=== PATIENT | female | born 1985 | race Two or more races ===

== ENCOUNTER 2024-10-31 10:46 | Inpatient (IN) | payer OTHER ==
[~2024-10-31] VITALS: Ht 172.7 cm; Wt 137.4 kg
[2024-10-31] MEDS ORDERED: ALBUTEROL0.63 MG/3 IH (11:03)
[2024-10-31] MEDS ORDERED: FLONASE ALLERG9.9 ML NS (11:03)
[2024-10-31] MEDS ORDERED: METHYLPREDNISOLONE SOD SUCC 125 MG VIAL ONE ×2 (11:26→19:05)
[2024-10-31] MEDS ORDERED: CEFTRIAXONE SODIUM 1,000 MG VIAL ONE (11:27)
[2024-10-31] MEDS ORDERED: FAMOTIDINE/PF 20 MG/2 ML VIAL ONE (11:27)
[2024-10-31] MEDS ORDERED: MAGNESIUM SULFATE IN WATER 2 GM/50 ML PIGGYBAG IV ONE (11:30)
[2024-10-31] MEDS ORDERED: IPRATROPIUM BROMIDE 0.5 MG/2.5 ML AMPUL.NEB IH SCH ×2 (11:30→17:58)
[2024-10-31] MEDS ORDERED: FAMOtidine 10 MG/ML (4ML VIAL) IV ONE (11:30)
[2024-10-31] MEDS ORDERED: CEFTRIAXONE SODIUM 1,000 MG VIAL IV ONE (11:30)
[2024-10-31] MEDS ORDERED: PIPERACILLIN/TAZOBACTAM SODIUM 3.375 GM VIAL IV ONE ×2 (11:30→11:33)
[2024-10-31] MEDS ORDERED: LEVALBUTEROL HCL 1.25 MG/3 ML SOLUTION IH SCH (11:30)
[2024-10-31] MEDS ORDERED: METHYLPREDNISOLONE SOD SUCC 125 MG VIAL IM ONE (11:30)
[2024-10-31] MEDS ORDERED: BENZONATATE 100 MG CAPSULE PO ONE (11:30)
[2024-10-31] MEDS ORDERED: MAGNESIUM SULFATE 50% 1,000 MG/2 ML VIAL ONE (11:36)
[2024-10-31] MEDS ORDERED: LEVALBUTEROL HCL 1.25 MG/3 ML SOLUTION IH ONE ×2 (11:39→18:46)
[2024-10-31] MEDS ORDERED: IPRATROPIUM BROMIDE 0.5 MG/2.5 ML AMPUL.NEB IH ONE ×2 (11:39→18:46)
[2024-10-31 12:08] LABS: ABG PO2 65.3 mmHg (80-100); ABG pCO2 44.5 mmHg (35-45); BASE EXCESS -0.3 mmol/l; BICARBONATE 25.2 mmol/l (23-25); SaO2 91.8 %; Tco2 26.6 mmol/l
[2024-10-31 12:09] LABS: allen test SATISFACTORY; o2 21 %; puncture site RADIAL RIGHT
[2024-10-31 12:18] LABS: HEMATOCRIT 39.1 % (36.0-45.00); HEMOGLOBIN 13.4 g/dL (12.0-15.00); MEAN CELL VOLUME 90.8 fL (80.00-100.00); MEAN CORPUSCULAR HEMOGLOBIN 31.2 pg (27.00-32.0); MEAN CORPUSCULAR HGB CONC 34.4 g/dl (32.0-36.0); PLATELET COUNT 239 K/uL (150-450); RED CELL DISTRIBUTION WIDTH 15.3 % (11.5-14.5)
[2024-10-31 13:08] LABS: ALBUMIN 3.9 gm/dL (3.4-5.0); BILIRUBIN TOTAL 0.69 mg/dL (0.3-1.2); CALCIUM 9.1 mg/dL (8.5-10.1); CREATININE SERUM 0.84 mg/dL (0.55-1.02); GFR 75.09; POTASSIUM 3.96 mEq/L (3.5-5.1); TOTAL PROTEIN 7.9 gm/dL (6.4-8.2)
[2024-10-31 13:16] LABS: INR 1.05; PROTHROMBIN TIME 11.4 SECONDS (9.0-11.5)
[2024-10-31 13:21] LABS: D DIMER 0.38 MG/L; PARTIAL THROMBOPLASTIN TIME 27.1 SECONDS (22.0-34.0)
[2024-10-31] MEDS ORDERED: ALBUTEROL SULFATE 3 ML/2.5 MG AMPUL.NEB IH SCH (17:57)
[2024-10-31] MEDS ORDERED: METHYLPREDNISOLONE SOD SUCC 125 MG VIAL IV SCH (18:00)
[2024-10-31] MEDS ORDERED: ACETAMINOPHEN 325 MG TABLET PO PRN (18:00)
[2024-10-31] MEDS ORDERED: ALBUTEROL SULFATE 3 ML/2.5 MG AMPUL.NEB IH ONE (19:05)
[2024-11-01 03:09] VITALS: BP 141/96; O2SAT 99
[2024-11-01 07:51] LABS: HEMATOCRIT 39.6 % (36.0-45.00); HEMOGLOBIN 13.6 g/dL (12.0-15.00); MEAN CELL VOLUME 92.1 fL (80.00-100.00); MEAN CORPUSCULAR HEMOGLOBIN 31.5 pg (27.00-32.0); MEAN CORPUSCULAR HGB CONC 34.3 g/dl (32.0-36.0); PLATELET COUNT 233 K/uL (150-450); RED CELL DISTRIBUTION WIDTH 15.3 % (11.5-14.5)
[2024-11-01 08:27] LABS: CALCIUM 8.9 mg/dL (8.5-10.1); CREATININE SERUM 0.86 mg/dL (0.55-1.02); GFR 73.08; POTASSIUM 4.06 mEq/L (3.5-5.1); TSH 0.756 uIU/mL (0.358-3.74)
[2024-11-01 08:31] LABS: C-REACTIVE PROTEIN 0.72 MG/DL (0.00-0.29)
[2024-11-01] MEDS ORDERED: FAMOTIDINE/PF 20 MG/2 ML VIAL IV SCH (09:00)
[2024-11-01] MEDS ORDERED: 0.9 % SODIUM CHLORIDE 1,000 ML IV SCH (09:00)
[2024-11-01] MEDS ORDERED: MONTELUKAST SODIUM 10 MG TABLET PO SCH (09:00)
[2024-11-01 09:28] LABS: ERYTHROCYTE SEDIMENTATION RATE 39 mm/hr
[2024-11-01 09:54] VITALS: BP 124/90; O2SAT 97
[2024-11-01 10:22] LABS: ABG PH 7.394 (7.35-7.45); ABG pCO2 33.9 mmHg (35-45)
[2024-11-01 10:23] LABS: BASE EXCESS -3.7 mmol/l; BICARBONATE 20.3 mmol/l (23-25); Tco2 21.3 mmol/l
[2024-11-01 10:24] LABS: ABG PO2 57.5 mmHg (80-100); allen test SATISFACTORY; o2 21 %; puncture site RADIAL LEFT
[2024-11-01] MEDS ORDERED: ACETAMINOPHEN 500 MG GEL..CAP PO PRN (11:45)
[2024-11-01 17:37] VITALS: BP 116/71; O2SAT 97
[2024-11-01] MEDS ORDERED: ENOXAPARIN SODIUM 80 MG/0.8 ML SYRINGE SUBCUTANEO SCH (21:00)
[2024-11-01] MEDS ORDERED: ENOXAPARIN SODIUM SUBCUTANEO SCH (21:00)
[2024-11-02 01:21] VITALS: BP 132/66
[2024-11-02 09:13] VITALS: BP 139/70; O2SAT 95
[2024-11-02] MEDS ORDERED: METHYLPREDNISOLONE SOD SUCC 40 MG VIAL IV SCH (12:00)
[2024-11-02 16:46] VITALS: BP 135/84; O2SAT 98
[2024-11-03 00:49] VITALS: BP 115/65; O2SAT 99
[2024-11-03 08:58] VITALS: BP 125/75; O2SAT 96
[2024-11-03] MEDS ORDERED: BUDESONIDE 0.5 MG/2 ML AMPUL.NEB IH SCH (17:00)
[2024-11-03 17:25] VITALS: BP 154/78; O2SAT 97
[2024-11-04 01:07] VITALS: BP 118/62; O2SAT 97
[2024-11-04 08:54] VITALS: BP 122/65; O2SAT 99
[2024-11-04] MEDS ORDERED: ENOXAPARIN SODIUM 40 MG/0.4 ML SYRINGE SUBCUTANEO SCH (09:00)
[2024-11-04] MEDS ORDERED: IPRATROPIUM/ALBUTEROL SULFATE 3 ML AMPUL.NEB IH ONE (13:14)
[2024-11-04 16:58] VITALS: BP 147/86; O2SAT 95
[2024-11-04] MEDS ORDERED: METHYLPREDNISOLONE SOD SUCC 40 MG VIAL IV SCH ×2 (17:00)
[2024-11-04] MEDS ORDERED: IPRATROPIUM/ALBUTEROL SULFATE 3 ML AMPUL.NEB IH SCH (17:00)
[2024-11-05 01:28] VITALS: BP 128/69; O2SAT 97
[2024-11-05 09:20] VITALS: BP 104/59; O2SAT 95
[2024-11-05 15:30] VITALS: BP 140/80
== END 2024-11-05 19:17 | disposition home or self-care (01) | DRG 202 ==
LOC: ER 10:49 → MEDI 18:43
PROVIDERS: General Practice; ADMIT Internal Medicine; ATTEND Internal Medicine
PROC: 3E0F7GC Introduction of Other Therapeutic Substance into Respiratory Tract, Via Natural or Artificial Opening (ICD-10-PCS; principal; 2024-10-31)
PROC: B32TYZZ Computerized Tomography (CT Scan) of Left Pulmonary Artery using Other Contrast (ICD-10-PCS; 2024-11-01)
PROC: B32SYZZ Computerized Tomography (CT Scan) of Right Pulmonary Artery using Other Contrast (ICD-10-PCS; 2024-11-01)
PROC: B246ZZZ Ultrasonography of Right and Left Heart (ICD-10-PCS; 2024-11-02)
DX: J45.21 Mild intermittent asthma with (acute) exacerbation (principal); E66.2 Morbid (severe) obesity with alveolar hypoventilation; Z68.42 Body mass index [BMI] 45.0-49.9, adult; C50.911 Malignant neoplasm of unspecified site of right female breast
CPT/HCPCS: 71275